=== PATIENT | male | born 1975 | race African-American/Black ===

== ENCOUNTER 2019-12-29 02:49 | Inpatient (IN) | payer OTHER ==
[~2019-12-29] VITALS: Ht 152.4 cm; Wt 67.1 kg
[2019-12-29] VITALS (9 sets, daily range): BP systolic 150–189; BP diastolic 65–115
--- NOTE | ~2019-12-29 | EEG ---
[facility] [place] [address] ELECTROENCEPHALOGRAM Name: LEONORA HINOJOSA Apoorva Room #: 207-P [facility] IN M.R.#: [id number] Admission: 12/29/19 Attend Phys: Eddie Rajan MD Discharge: Date of : 71 Report #: [id number] THIS REPORT FOR: //name// CC: Eddie Rajan NO PCP DATE OF SERVICE: 12/29/2019 This patient is being evaluated for the possibility of seizure. EEG was done by placing the electrodes by standard 10-20 system of electrode placement. Both referential and sequential montages were used for recording. Background activity in this patient's EEG is about 7 Hz and 15-20 microvolts. A lot of artifact is present. Photic stimulation is unremarkable. The patient did become drowsy and that is associated with bilateral slowing and vertex sharp waves. No active epileptiform activity was noticed during this record. IMPRESSION: This patient's EEG demonstrates intermixed slowing, which is nonspecific and can occur with encephalopathy, effect of psychotropic medication, dementia. No active epileptiform activity was noticed. Thank you very much for this referral. By: [id number] Tae Avery MD /nt
[2019-12-29 03:25] LABS: ABSOLUTE NEUTROPHILS 7.1 thou/uL (1.4-8.2); BASOPHILS 0.7 % (0.0-2.0); HEMATOCRIT 40.1 % (42.0-52.0); LYMPHOCYTES 22.4 % (24.0-44.0); MCH 26.2 pg (26.0-34.0); MCHC 32.5 g/dL (28.0-37.0); MCV 80.7 fL (80.0-100.0); MONOCYTES 5.4 % (1.0-8.0); PLATELET COUNT 155 thou/uL (150-400); POLYS 70.5 % (36.0-66.0); RBC 4.97 mil/uL (4.50-6.00); RDW 15.8 % (10.5-14.5)
[2019-12-29 03:32] LABS: URINE BILIRUBIN 1+ (Negative); URINE BLOOD 2+ (Negative); URINE CLARITY CLEAR; URINE COLOR YELLOW; URINE GLUCOSE-RANDOM* NEGATIVE (Negative); URINE KETONES 2+ (Negative); URINE LEUKOCYTES-REFLEX NEGATIVE (Negative); URINE NITRITE-REFLEX NEGATIVE (Negative); URINE PROTEIN (DIPSTICK) 2+ (Negative); URINE SPECIFIC GRAVITY >= 1.030 (1.005-1.035); URINE UROBILINOGEN >= 8.0 E.U./dl (0.2-1.0)
[2019-12-29 03:38] LABS: CALCIUM 9.2 mg/dL (8.5-10.1); POTASSIUM 3.6 mmol/L (3.5-5.1)
[2019-12-29 03:45] LABS: ALBUMIN 4.1 g/dL (3.4-5.0); TOTAL BILIRUBIN 1.3 mg/dL (0.2-1.0); TOTAL PROTEIN 8.3 g/dL (6.4-8.2)
[2019-12-29 03:45] LABS: AMP/METHAMP Negative (Negative); BARBITURATES Negative (Negative); BENZODIAZEPINES Negative (Negative); COCAINE Negative (Negative); METHADONE Negative (Negative); OPIATES Negative (Negative); PCP Negative (Negative)
[2019-12-29 03:50] LABS: SQUAMOUS 0-3 Few /LPF (0-3); URINE WBC-REFLEX 0-5 Rare /HPF (0-5)
[2019-12-29 03:51] LABS: BACTERIA-REFLEX 1-9 Few /HPF (None Seen); CASTS None Seen /LPF (None Seen); CRYSTALS None Seen /LPF (None Seen); MUCUS >6 Heavy strn/LPF (None Seen)
--- NOTE | 2019-12-29 07:15 | NUR ---
PT ADMITTED FROM ED WITH NEW ONSET SEIZURE ACTIVITIES.ARRIVED TO UNIT VIA CART ACCOMPANIED BY THE STAFF.PT CONFUSED,ALERT TO SELF UPON ARRIVAL,FOLLOWS SIMPLE COMMANDS.ON RA W/O RESP DISTRESS.SEIZURE PRECAUTIONS IN PLACE.ASSEMENT COMPLETED PARTIAL D/T PATIENT COGNITION STATUS.FALL RISK PRECAUTIONS INTIATED.NO ACUTE DISTRESS NOTED.REPORT GIVEN TO DAY RN TO F/U.
--- NOTE | 2019-12-29 07:45 | EKG ---
[facility] [place] [address] [place] [address] ELECTROCARDIOGRAM REPORT Name: ASHISHLEONORA MANE Room #: 207-P ADM IN M.R.#: [id number] Admission: 12/29/19 Attend Phys: David Ellis MD Discharge: Date of : 71 Report #: [id number] THIS REPORT FOR: cc: NO FAMILY PHYSICIAN or PCP NO FAMILY PHYSICIAN or PCP Jerad Dan MD [facility] ~ THIS REPORT FOR: //name// [facility] ED Test Date: 2019-12-29 Test Time: 02:56:56 Pat Name: LEONORA HINOJOSA Department: Room: [facility] Gender: M Undercover Cop: : 1975 Requested By: Juan Peterson Order Number: [id number] MD: Jerad Dan Measurements Intervals [place] Rate: 60 P: 43 DC: 151 QRS: 66 QRSD: 101 T: 18 QT: 415 QTc: 415 Interpretive Statements Sinus rhythm Left ventricular hypertrophy No previous ECG available for comparison Electronically Signed On 12-29-2019 7:45:34 CDT by Jerad Dan [email or web address] <ELECTRONICALLY SIGNED> By: Jerad Dan MD, FAC 12/29/19 0745 0256 5 Jerad Dan MD, FAC /EPI
[2019-12-29 09:04] LABS: TSH 2.339 uIU/mL (0.358-3.740)
--- NOTE | 2019-12-29 11:38 | NUR ---
cm completed initial assessment. pt presents alert w/some disorientation, aeb pt could not recall date, month nor year. pt stated he is currently employeed by [employer] "off and on for seven years." However, pt's mother, Gely, stated that "he is confused," as he has been "laid off for awhile." Pt was restless in bed, attempting to get up. pt assigned 1:1 sitter to prevent pt from getting out of bed. gely stated pt lives with his adult dtr, Rui. Gely stated pt "lies about his drinking." Accord to Gely pt is an "alcoholic" he "has been drinking for many years." Gely said Luismikey informed her pt has been drinking more the last few days, prob r/t to increased depression, pt has been "dealing with depression for years every since my daughter [2007]. Also, pt father has been recently hospialized d/t covid, so that can be the cause for increased drinking the last few days/Gely. pt can usually drinks "all day long."/Gely. Gely rankin the alcohol use has prevented the pt from being able to keep a job. pt has 0 dmes. gely denies hx w/snf or hh. cm to discuss alcohol use w/pt to see if pt would like resources. According to ER note, pt reported to "drinking 2x/wk, but has not had a drink in a few days." cm to cont to follow to assist as needed. pt does not have a hx of siezures. "The first time was yesterday."/Gely.
--- NOTE | 2019-12-29 13:51 | NUR ---
assessment as charted - meds as per jun - no co's of pain or nausea. issa diet and fluids. up ad dat in room. pt home afternoon. instruction re home meds/ care and follow up given to patient, stated understanding of instruction given. pt left unit via wheelchair - home via pvt vehicle accomapnied by mother. no co's at time of d/c.
--- NOTE | 2019-12-29 18:16 | NUR ---
ASSESSMENT CHARTED - PT VERY CONFUSED -INCOMPRHENSIBLE SOUNDS AT TIME AT OTHERS ABLE TO MAKE OUT WHAT PATIENT IS SAYING. FOLLOWS COMMANDS AT TIMES NOT CONSISTENTLY. PT CLIMBED OUT OF BED OVER RAILS THIS AM AND FELL. PT UNABLE TO BEAR WEIGHT AND LEGS WOULD GIVE OUT UNDER HIM WHEN HE ATTEMPTED TO STAND. GAIT BELT APPLIED AND PATIENT PLACED BACK IN BED. INSTRUCTED TO CALL FOR NEED TO GET UP, ENSURED PT DEMONSTRATED ABILITY TO PUSH FOR NURSE. PT VERY AGGITATED / TREMORS/ GIVEN ATIVAN PER [facility] AND [facility]. THIS HAS KEPT PATIENT CALMER THROUGHOUT THE DAY - WHEN PATIENT BECOMES AGGITATED HEART RATE JUMPS INTO THE 150-160'S FROM USUAL RATE ON LOW 100 TO 110'S. PT HAS WOKEN TO VOID BECOMES VERY RESTLESS WHEN NEEDING TO VOID. HAS VOIDED WITH ASSISTANCE IN THE URINAL. SPOKE WITH PATIENT MOTHER THIS AM POST FALL AND INFORMED HER- PT DOCTOR ALSO INFORMED OF FALL - NO INJURY NOTED AND PATIENT DID NOT HIT HEAD WHEN ASKED. SKIN REMAINS INTACT ABLE TO MOVE ALL EXTREMITIES WITHOUT CO'S OF PAIN AND WITH NO DIFFICULTIES. MOTHER CALLED AGAIN THIS AFTERNOON TO INFORM THAT PATIENTS FATHER IS IN THE HOSPTIAL WITH COVID AND HIS BROTHER HAS TESTED POSITIVE AND PATIENT HAS HAD CONTACT WITH EACH PERSON IN THE LAST WEEK. NOTIFIED - COVID TEST TO THE LAB AND PATIENT TO BE TRANSFERED TO COVID UNIT UNTIL TEST RESULTS ARE OBTAINED. REPORT CALLED TO [facility]. PATIENT WILL TRANSFER VIA BED. ON ARRIVAL TO COVID UNIT PATIENT TO BE PLACED ON SAT MONITOR HAVE SORTO CATH PLACED. PT WILL BE TRANSFERE VIA BED WITH MASK IN PLACE. FAMILY AWARE THAT PATIENT TO BE TRANSFERED.
[2019-12-30 01:06] LABS: GLYCOHEMOGLOBIN (HGB A1C) 5.5 % (4.8-5.6)
--- NOTE | 2019-12-30 02:51 | NUR ---
ASSUMED CARE OF PATIENT AT 1900. PATIENT CONTINUES ON SEIZURE PRECAUTIONS. PATIENT'S CIWA SCORES THROUGH NOC WERE BETWEEN 11-14. ADMINISTERED PRN LORAZEPAM ORDERED. PATIENT ORIENTED TO SELF ONLY AND CONFUSED. PATIENT NEEDS FEQUENT SUPERVISION DUE TO ATTEMPTS TO CRAWL OUT OF BED AND REPORTED FALL PREVIOUS AM. ATTEMPTS TO REORIENT PATIENT ARE UNSUCCESSFUL. PATIENT IS NOT PROGRESSING TOWARDS GOALS.
[2019-12-30 04:15] VITALS: BP 167/110
[2019-12-30 05:56] LABS: PROTIME 10.4 Seconds (9.3-11.4)
[2019-12-30 06:27] LABS: CALCIUM 8.9 mg/dL (8.5-10.1); CREATININE 0.9 mg/dL (0.7-1.3)
[2019-12-30 06:43] LABS: POTASSIUM 2.9 mmol/L (3.5-5.1)
[2019-12-30 08:03] VITALS: BP 159/180
--- NOTE | 2019-12-30 09:11 | HC ---
[facility] [place] [address] CONSULTATION Name: LEONORA HINOJOSA Apoorva Room #: 351-P [facility] IN .R.#: [id number] Admission: 12/29/19 Attend Phys: Eddie Rajan MD Discharge: Date of : 71 Report #: [id number] THIS REPORT FOR: cc: NO FAMILY PHYSICIAN or PCP NO FAMILY PHYSICIAN or PCP Tae Avery MD ~ CC: Eddie Rajan NO PCP DATE OF SERVICE: 12/29/2019 HISTORY OF PRESENT ILLNESS: This is a 44-year-old male patient who is unable to provide any reliable history at all. The patient will not cooperate with anything. He provides history that he just drinks a couple of beers and then he stopped drinking. I was able to reach the patient's mother and she provides altogether history. She says she is lifelong alcoholic and he has been drinking very heavily. He finished a bottle of hard liquor in 2 days. He was admitted with 2 seizures. He apparently did not have any seizure before, but had been alcoholic for a long time. He did have a CT scan of the head in the Emergency Room, which demonstrated atrophy. REVIEW OF SYSTEMS: From the mother, it looks like the patient has heavy history of alcohol drinking. He had stopped a couple of days ago and then he had more than one seizure. That is all the history I can get. PAST MEDICAL HISTORY: Negative for seizure. FAMILY HISTORY: Negative for congenital epilepsies, the best I can tell. SOCIAL HISTORY: He smokes every day and according to the mother, he drinks heavily and she is pretty certain about it. Examination is impossible. He talks, but I cannot understand him. He does not cooperate with examination. He does appear to have nystagmus on both sides. He moves all 4 extremities. He does not complain of any pain any place. He does not allow me to do a sensory system examination, reflexes or cooperate with the cerebellar sign. He is a moderately built individual. His hearing and vision looks adequate. His white count is normal, but he is tachycardic. He does have a slight fever. His temperature was 101. IMPRESSION: This patient probably has alcohol withdrawal seizure. A slight temperature is worrisome in this patient. The problem is not going to be possible to do testing on him because he is so agitated. MRI will require conscious sedation and that need to be arranged to do anesthesia if he need to [address] [address] CONSULTATION Name: LEONORA HINOJOSA Room #: 351-P [facility] IN .R.#: [id number] Admission: 12/29/19 Attend Phys: Eddie Rajan MD Discharge: Date of : 71 Report #: [id number] do a spinal tap, he will again need a conscious sedation. I talked to the mother and she is not in favor of spinal tap at all. Therefore, I consulted Infectious Disease at least that we can start him on some antimicrobial for the time being until we can figure out whether he has any systemic infection, which can explain his symptoms or we need to talk to the family again to allow us to do the spinal tap under conscious sedation. I also talked to admitting nurse practitioner and told that he should receive a banana bag and thiamine and multivitamin on a regular basis. He did have a UA, but he also need I think chest x-ray because he may have aspirated and looks like they are going to arrange that. Thank you very much for this referral and I will follow this patient along with you. He is getting an EEG done and we will look at it when it is available. <ELECTRONICALLY SIGNED> By: Tae Avery MD 12/30/19 0911 [id number] [id number] Tae Avery MD /nt
--- NOTE | 2019-12-30 12:51 | NUR ---
SW reviewed chart and spoke with nursing and attending physician. Pt transferred to from . Placed in Enhanced Isolation to r/o COVID-19. Pt's test is pending. Pt had fever and is on IV abx. Not requiring O2. Pt to have LP per neuro and ID. Pt will need therapy evals when able to participate. Pt does not have health insurance. Med Assist to follow up with pt/family for financial assistance/Medicaid application. [facility] is following to assist as needed with discharge planning.
--- NOTE | 2019-12-30 20:01 | NUR ---
PATIENT CONT TO BE RESTLESS IN BED THROUGH THE DAY. HE IS ALERT ORIENTED X4. DOES NOT SEEM TO BE IN PAIN BUT KEEPS TRYING TO LEAVE THE BED. WILL CONT WITH PLAN OF CARE.
[2019-12-30 20:45] VITALS: BP 153/98
[2019-12-31 00:59] VITALS: BP 165/92
[2019-12-31 05:18] LABS: HEMATOCRIT 36.3 % (42.0-52.0); HEMOGLOBIN 11.5 gm/dL (14.0-18.0); MCH 25.9 pg (26.0-34.0); MCHC 31.7 g/dL (28.0-37.0); MCV 81.9 fL (80.0-100.0); RBC 4.43 mil/uL (4.50-6.00); RDW 15.6 % (10.5-14.5)
[2019-12-31 05:26] LABS: CALCIUM 8.7 mg/dL (8.5-10.1); CREATININE 0.8 mg/dL (0.7-1.3); MAGNESIUM 2.1 mg/dL (1.8-2.4); POTASSIUM 3.2 mmol/L (3.5-5.1)
[2019-12-31 05:30] LABS: APTT 33.8 Seconds (24.5-32.8); PROTIME 10.4 Seconds (9.3-11.4)
[2019-12-31 05:56] VITALS: BP 176/111
--- NOTE | 2019-12-31 06:07 | NUR ---
ASSUMED CARE AT 1900. PT VERY RESTLESS, THROWING LEGS OVER THE SIDERAIL, PULLING AT CATHETER/STATLOCK, ETC. ALERT TO HIMSELF BUT OTHERWISE GAVE NONSENSICAL ANSWERS WITH SLURRED SPEECH; PUPILS EQUAL, ROUND, REACTIVE; STRONG KOSHER BUTCHER, VERY NOTICEABLE TREMOR. CIWA SCORE RANGED FROM 13-16 OVERNIGHT; PT DID NOT SLEEP, JUST TALKED TO HIMSELF CONTINUOUSLY. AT ONE POINT, BED ALARM WENT OFF AND PT WAS ALMOST ENTIRELY OUT OF THE BED OVER THE SIDE RAILS BEFORE STAFF GOT HIM BACK INTO THE BED. POTASSIUM AND MAG REPLACED OVERNIGHT ALONG WITH MULTIPLE ABX AND FLUIDS. URINE OUT OF SORTO WAS DARK ORANGE/RED WITH SMALL CLOTS AND SEDIMENT FROM HIM PULLING AT IT. NEW IV PLACED TO OUTER AC/UPPER ARM. WAS ABLE TO GET PT TO TAKE PILLS WITH APPLE JUICE, BUT THIS AM WAS SUSPICIOUS OF THE PILLS BEFORE FINALLY TAKING THEM. BP ELEVATED THIS AM 176/111, OBTAINED ORDER FOR ONE TIME DOSE HYDRALAZINE. NO OTHER CONCERNS, WILL CONTINUE TO MONITOR.
[2019-12-31 07:35] VITALS: BP 150/105
--- NOTE | 2019-12-31 12:15 | NUR ---
[facility] reviewed chart and spoke with nursing and attending physician. Enhanced Isolation precautions have been discontinued. Pt to have lumbar puncture. Per chart, LP unable to be completed until Friday. SW updated attending physician. No weekend discharge planned. Pt will need therapy evals ordered when able to participate. [facility] is following to assist as needed with discharge planning.
[2019-12-31 20:05] VITALS: BP 185/120
[2020-01-01] VITALS (54 sets, daily range): BP systolic 94–165; BP diastolic 59–105
--- NOTE | 2020-01-01 00:11 | NUR ---
ASSUMED CARE AT 1900. PT AGITATED AND RESTLESS, TRYING TO CLIMB OUT OF BED, VISIBLE TREMORS. GAVE PRN ATIVAN AND SCHEDULE MEDS. IV INFILTRATED, NEW IV PLACED TO INNER R AC; THIS LATER INFILTRATED, ANOTHER NEW IV PLACED TO LEFT FA. PT DISORIENTED, ONLY ABLE TO GIVE HIS NAME; ABLE TO USE URINAL ONE TIME WITH NURSE ASSISTANCE THEN LATER SOAKED THE BED; MULTIPLE LOOSE BM/SMEARS. BECAME VERY BELLIGERENT DURING CLEAN UP OF STOOL, TRYING TO KICK AND CLIMB OUT OF BED. GAVE ONE TIME PRN DOSE ZYPREXA FOR LITTLE EFFECT. OBTAINED ONE TIME ORDER FOR CHARLIE, GIVEN BY SURGERY ATTENDANT. PT TRANSFERRED TO ICU D/T UNCONTROLLABLE ALCOHOL WITHDRAWAL; BEDSIDE REPORT GIVEN TO STANISLAV REYES AT 2350.
--- NOTE | 2020-01-01 00:27 | NUR ---
This RN received report and successfully transfered patient to ICU room 242. Patient started on Precedex gtt to get patient relaxed. Pt on IV fluids and receiving replacement potassium. Spoke to MIRTHA Cintron to discuss patient needs.
[2020-01-01 05:42] LABS: HEMATOCRIT 34.2 % (42.0-52.0); HEMOGLOBIN 10.9 gm/dL (14.0-18.0); MCH 26.2 pg (26.0-34.0); MCHC 31.8 g/dL (28.0-37.0); MCV 82.2 fL (80.0-100.0); RBC 4.16 mil/uL (4.50-6.00); RDW 15.3 % (10.5-14.5)
[2020-01-01 05:54] LABS: CALCIUM 8.6 mg/dL (8.5-10.1); CREATININE 0.6 mg/dL (0.7-1.3); POTASSIUM 3.4 mmol/L (3.5-5.1)
--- NOTE | 2020-01-01 14:23 | NUR ---
ASSUMED CARE AT SHIFT CHANGE, ASSESSMENT DOCUMENTED. PRECEDEX INFUSING PER ORDERS. CIWA 23, MILTON ON THE MONITOR, AND BP WITHIN NORMAL. PATIENT TEMP AT 10 AM 90, AND RECHECKED IN 30 MINUTES AFTER APPLYING WARM BLANKES AT 89.6 DR VILLANUEVA NOTIFED AND BEAR HUGER APPLIED TO PATIENT, AND WILL RECHECK IN AN HOUR. REMAINS ON KING RESTRAINTS, AND Q2 CHECKED. AND WILL CONTNUE TO MONITOR PATIENT.
[2020-01-02] VITALS (47 sets, daily range): BP systolic 103–199; BP diastolic 59–106
[2020-01-02 04:18] LABS: CALCIUM 8.7 mg/dL (8.5-10.1); CREATININE 0.8 mg/dL (0.7-1.3); POTASSIUM 3.1 mmol/L (3.5-5.1)
[2020-01-02 04:21] LABS: HEMATOCRIT 34.1 % (42.0-52.0); HEMOGLOBIN 10.9 gm/dL (14.0-18.0); MCH 26.4 pg (26.0-34.0); MCHC 32.1 g/dL (28.0-37.0); MCV 82.2 fL (80.0-100.0); RBC 4.14 mil/uL (4.50-6.00); WBC 7.4 thou/uL (4.0-11.0)
--- NOTE | 2020-01-02 08:01 | NUR ---
PT REMAINS CONFUSED, ORIENTED TO SELF AND FORGETFUL, NOT REMEMBERING WHERE HE IS OR WHY HE IS HERE, EASILY GETS AGITATED TO ANSWER QUESTIONS. PRECEDEX GTT STILL ON, RESTRAINTS MAINTAINED.
--- NOTE | 2020-01-02 17:21 | NUR ---
Radiology has no idea what time they would do the lumbar puncture tommorrow. Instructed to call unit in am to see if ID still wants it. ID had already rounded for today.
[2020-01-02 17:35] LABS: ALBUMIN 2.6 g/dL (3.4-5.0); CALCIUM 8.5 mg/dL (8.5-10.1); CREATININE 0.7 mg/dL (0.7-1.3); POTASSIUM 3.5 mmol/L (3.5-5.1); TOTAL BILIRUBIN 0.5 mg/dL (0.2-1.0); TOTAL PROTEIN 6.3 g/dL (6.4-8.2)
--- NOTE | 2020-01-02 20:07 | NUR ---
PT MOVING TOWARDS GOALS, WEANING PRECEDEX. FOLLOWS ALL COMMANDS. MAY HAVE LUMBAR PUNCTURE IN AM.
[2020-01-03] VITALS (20 sets, daily range): BP systolic 141–186; BP diastolic 67–152
[2020-01-03 05:17] LABS: HEMATOCRIT 35.1 % (42.0-52.0); HEMOGLOBIN 11.3 gm/dL (14.0-18.0); MCH 26.4 pg (26.0-34.0); MCHC 32.1 g/dL (28.0-37.0); MCV 82.1 fL (80.0-100.0); RBC 4.27 mil/uL (4.50-6.00); RDW 15.6 % (10.5-14.5); WBC 6.1 thou/uL (4.0-11.0)
[2020-01-03 05:29] LABS: CALCIUM 8.4 mg/dL (8.5-10.1); CREATININE 0.8 mg/dL (0.7-1.3); POTASSIUM 3.2 mmol/L (3.5-5.1)
--- NOTE | 2020-01-03 06:00 | NUR ---
PT AWAKE AND ALERT ORIENTED COOPERATIVE. UP TO BEDSIDE COMMODE HAD A LARGE LOOSE BROWN STOOL. BATHED. REMAINS IN SINUS RHYTHM. PRECEDEX GTT 0.4 MCG LUNBGS CLEAR. EARLIER PT HAD A TURKEY SANDWICH AND PEANUT BUTTER AND CRACKERS MARVA DIET WELL. 2000 CC UOP THIS SHIFT. PT IS TO GO FOR A POSSIBLE LP TODAY. CWAW SCORE 0 PROGRESSING TOWARD GOALS NO SEIZURE ACTIVTY. WILL CONT TO MONITOR.
[2020-01-03 07:57] LABS: APTT 33.8 Seconds (24.5-32.8); PROTIME 10.2 Seconds (9.3-11.4)
--- NOTE | 2020-01-03 08:22 | NUR ---
PT AOX3, STATES HE USUALLY DRINKS A 6 PACK PER DAY, DENIES ANY WITHDRAW SYMPTOMS. PRECEDEX TURNED OFF BY BARREL RIFLER OPERATOR THIS MORNING AT 0700. DR MIN IN TO SEE PT, PT STATES HE DOES NOT WANT TO HAVE LUMBAR PUNCTURE. DR MIN SAID TO CHECK WITH DR MONROE TO SEE IF HE WOULD EVEN WANT IT ANY MORE, BUT CAN'T BE DONE TODAY BECAUSE PT GOT LOVENOX LAST NIGHT. PT C/O BEING COLD, THERMOSTAT IN ROOM TURNED UP AND ICE WATER PITCHER REFILLED.
--- NOTE | 2020-01-03 09:24 | NUR ---
UPDATE ON PT CONDITION GIVEN TO DR GOODWIN, HE AGREES PT CAN MOVE TO MED/SURG WITH NO TELE NEEDED.
--- NOTE | 2020-01-03 10:58 | NUR ---
SORTO REMOVED, PT TOLERATED WELL. PT UP TO COMMODE, HAD BOWEL MOVEMENT.
--- NOTE | 2020-01-03 14:20 | NUR ---
cm unable to speak with pt, rt walking with physical therapy. possible out of icu today. no lumbar puncture today rt on lovenox and has to be stopped for 24-48hrs before LP can be done. ID MD to see if pt needs to have LP before dc home. cont on iv abx. will cont following as needed for dc needs. alcohol support: faisal [phone], vince [phone] and [place] [phone],
--- NOTE | 2020-01-03 17:02 | NUR ---
pt blood pressure high, gave prn hydralazine, still 171/112, paged Dr Rajan, order for one time additional dose of amlodipine received.
--- NOTE | 2020-01-03 18:44 | NUR ---
pt up to chair most of the day, using urinal, great uop, abx infusing, additional iv started by iv team. denies pain. pt gets tachy up to 150s with activity but comes back down when seated
--- NOTE | 2020-01-03 20:00 | NUR ---
ASSUMED CARE OF PT. AWAKE AND ALERT NEURO INTACT. CWAI ZERO. HAD A LARGE BROWN LOOSE STOOL. PT BATHED. DENIES PAIN NOR DISCOMFORT. JUST ANXUIOUS TO GO HOME. SINUS RHYTHM. MARVA DIET. PROGRESSING TOWARD GOALS. WILL CIONT TO MONITOR.
--- NOTE | 2020-01-03 23:00 | NUR ---
DR MONROE DCD ALL ANTIBIOTICS.
[2020-01-04] VITALS: BP 144/88
[2020-01-04 08:03] VITALS: BP 142/92
--- NOTE | 2020-01-04 08:25 | NUR ---
PT ALERT AND ORIENTED TIMES FOUR. PT VERY DISCHARGE FOCUSED. VSS. 98%RA. ST ON TELE. PT DENIES PAIN/SOA. PT TOLERATES MEDS. PT UP WALKING AROUND THE ROOM. PT PROGRESSING TOWRADS GOALS.
--- NOTE | 2020-01-04 09:00 | NUR ---
noted per chart, pt wanting to go home and refusing LP. will cont following as needed for dc needs. ethol resource put on dc orders.
[2020-01-04] MEDS ORDERED: NORVASC5 MG PO (09:59)
[2020-01-04] MEDS ORDERED: VITAMIN B-1100 M2 PO (09:59)
[2020-01-04] MEDS ORDERED: PRENATAL COMPL1 EACH PO (09:59)
[2020-01-04] MEDS ORDERED: PROTONIX40 M4 PO (10:00)
== END 2020-01-04 10:20 | disposition home or self-care (01) | DRG 897 ==
LOC: ER 02:49 → 2N 05:27 → EROBS 05:27 → 2N 05:56 → 3W 19:07 → ICU 12-31 23:49
PROVIDERS: Emergency Medicine; Nurse Practitioner; Psychiatry & Neurology Neuromuscular Medicine; ADMIT Hospitalist; ATTEND Hospitalist
DX: F10.231 Alcohol dependence with withdrawal delirium (principal); J45.909 Unspecified asthma, uncomplicated; F17.210 Nicotine dependence, cigarettes, uncomplicated; R41.0 Disorientation, unspecified; Z20.828 Contact with and (suspected) exposure to other viral communicable diseases; R00.0 Tachycardia, unspecified; Z71.6 Tobacco abuse counseling; Z79.899 Other long term (current) drug therapy
CPT/HCPCS: 10078; 10204; 10879